=== PATIENT | female | born 1970 | race Caucasian/White ===

== ENCOUNTER → 2021-08-07 | Day surgery (SDC) | payer BC ==
[~2021-08-07] MED LIST: ABILIFY 2 MG TAB2 MG PO; FLUTICASONE SPRAY; LO LOESTRIN FE1 EACH PO; PROGESTERONE100 MG PO; VENLAFAXINE HCL75 M2 PO; VITAMIN B COMP1 EAC1 PO; VITAMIN C PO; VYVANSE50 MG PO; ZINC PO
== END | disposition home or self-care (01) ==
LOC: OR 06:01
DX: J34.2 Deviated nasal septum (principal); J34.3 Hypertrophy of nasal turbinates; J32.9 Chronic sinusitis, unspecified; Z88.5 Allergy status to narcotic agent; Z88.8 Allergy status to other drugs, medicaments and biological substances; Z79.899 Other long term (current) drug therapy
CPT/HCPCS: 84703; C1726; J0171; J1100; J1170; J2250; J2270; J2405; J2704; J2710; J3010; J7030; J7120

== ENCOUNTER → 2021-12-28 | Outpatient (CLI) | payer BC | LOC: KOH-I 13:40 | DX: S82.891A Other fracture of right lower leg, initial encounter for closed fracture (principal) | CPT/HCPCS: 73610 ==

== ENCOUNTER → 2022-01-07 | Outpatient (CLI) | payer BC | LOC: KOH-I 10:31 | DX: S82.841D Displaced bimalleolar fracture of right lower leg, subsequent encounter for closed fracture with routine healing (principal); M79.671 Pain in right foot; M19.071 Primary osteoarthritis, right ankle and foot | CPT/HCPCS: 73610; 73630 ==

== ENCOUNTER → 2022-01-28 | Outpatient (CLI) | payer BC | LOC: KOH-I 14:19 | DX: S82.51XD Displaced fracture of medial malleolus of right tibia, subsequent encounter for closed fracture with routine healing (principal); M79.671 Pain in right foot | CPT/HCPCS: 73610; 73630 ==

== ENCOUNTER → 2022-03-18 | Outpatient (CLI) | payer BC | LOC: KOH-I 09:45 | DX: S82.891A Other fracture of right lower leg, initial encounter for closed fracture (principal); S92.341A Displaced fracture of fourth metatarsal bone, right foot, initial encounter for closed fracture; X58.XXXA Exposure to other specified factors, initial encounter | CPT/HCPCS: 73610; 73630 ==